=== PATIENT | female | born 1985 | race African-American/Black ===

== ENCOUNTER 2022-08-17 09:56 | Inpatient (IN) ==
[2022-08-17] MEDS ORDERED: CITRIC ACID/SODIUM CITRATE 30 ML UDCUP PO ONE (10:28)
[2022-08-17] MEDS ORDERED: METHYLERGONOVINE 0.2 MG/1 ML AMP IM PRN (10:28)
[2022-08-17] MEDS ORDERED: OXYTOCIN/LR 20 UNIT/1,000 ML BAG IV ONE ×2 (10:28→15:27)
[2022-08-17] MEDS ORDERED: CARBOPROST TROMETHAMINE 250 MCG/ML AMP IM PRN (10:28)
[2022-08-17] MEDS ORDERED: miSOPROStoL 200 MCG TABLET RECTAL PRN (10:28)
[2022-08-17] MEDS ORDERED: ceFAZolin 3,000 MG in SYRINGE 1 EACH IV ONE (10:28)
[2022-08-17] MEDS ORDERED: FAMOTIDINE 20 MG/2 ML VIAL IV ONE (10:28)
[2022-08-17] MEDS ORDERED: TRANEXAMIC ACID 1,000 MG in SODIUM CHLORIDE 0.9% 100 ML IV PRN (10:28)
[2022-08-17] MEDS ORDERED: LACTATED RINGERS 1,000 ML IV SCH ×2 (10:30→15:30)
[2022-08-17 10:50] LABS: Basophils % 0.2 % (0.0-0.8); Eosinophils # 0.1 10*3/uL (0.0-0.87); Eosinophils % 0.7 % (0.00-10.9); Hematocrit 31.8 VOL% (35.7-47.0); Hemoglobin 10.4 GM/DL (12.0-16.0); Immature Granulocytes % 0.5 %; Immature Granulocytes Absolute 0.04 #; Lymphocytes # 1.3 10*3/uL (1.4-4.0); Lymphocytes % 15.6 % (21.3-54.2); Mean Corpuscular HGB Conc 32.7 GM/DL (32-36); Mean Corpuscular Volume 92.7 FL (87-102); Monocytes # 0.5 10*3/uL (0.11-0.8); Monocytes % 5.6 % (1.7-12.7); Neutrophils % 77.4 % (38.7-73.9); Platelet Count 305 T/CUMM (130-400); Red Blood Count 3.43 MC/CUMM (3.8-5.5); Red Cell Distribution Width 14.1 % (9.3-17.3); White Blood Count 8.25 T/CUMM (4-12)
[2022-08-17] MEDS ORDERED: diphenhydrAMINE 50 MG/1 ML VIAL IV PRN ×2 (11:19)
[2022-08-17] MEDS ORDERED: LACTATED RINGERS 1,000 ML IV ONE ×2 (11:19→14:55)
[2022-08-17] MEDS ORDERED: PROMETHAZINE 25 MG/1 ML VIAL IM ONE (11:19)
[2022-08-17] MEDS ORDERED: hydrOXYzine HCL 25 MG/1 ML VIAL IM PRN (11:19)
[2022-08-17 11:29] LABS: Albumin 2.3 G/DL (3.4-5.0); Bilirubin,Total 0.7 MG/DL (0.20-1.00); Calcium 9.1 MG/DL (8.5-10.1); Osmolality,Calculated 273.5 MOS/KG (273-304); Potassium 3.3 MMOL/L (3.5-5.1)
[2022-08-17] MEDS ORDERED: OXYTOCIN 10 UNIT/ML VIAL IM ONE (13:00)
[2022-08-17] MEDS ORDERED: OXYTOCIN/LR 30 UNIT/1,000 ML BAG IV ONE (13:00)
[2022-08-17] MEDS ORDERED: buprenorphine HCL 0.3 MG/ML VIAL ONE (13:47)
[2022-08-17] MEDS ORDERED: PHENYLEPHRINE 1 MG/10 ML SYRINGE IV ONE ×2 (14:02→14:23)
[2022-08-17] MEDS ORDERED: ONDANSETRON 4 MG/2 ML VIAL ONE ×2 (14:05→14:28)
[2022-08-17] MEDS ORDERED: KETOROLAC 30 MG/1 ML VIAL ONE (14:42)
[2022-08-17 14:51] LABS: Bacteria,Urine Occasional /HPF (Few); Bilirubin,Urine Negative (Negative); Blood, Urine Negative (Negative); Glucose,Urine (UA) Negative (Negative); Ketones,Urine 80 mg/dL (Negative); Mucus,Urine Occasional /LPF (Occasional); Nitrite,Urine Negative (Negative); Protein,Urine Negative (Negative); RBC,Urine 1 /HPF (0-4); Squamous Epithelial Cell,Urine Occasional /HPF (0-10); Urine Appearance Clear (Clear); Urine Color Yellow (Yellow); Urine Urobilinogen 0.2 eU/dL (<2.0); Urine pH 6.5 (4.5-8.0)
[2022-08-17 14:55] LABS: Cord Arterial Blood HCO3 21.2 MMOL/L
[2022-08-17 14:57] LABS: Cord Venous Blood HCO3 22.3 MMOL/L; Cord Venous Blood PCO2 49.3 MMHG; Cord Venous Blood PO2 28.1
[2022-08-17] MEDS ORDERED: LIDOCAINE 2% 5 ML VIAL ONE (15:08)
[2022-08-17] MEDS ORDERED: SIMETHICONE CHEW 80 MG TABLET PO PRN (15:27)
[2022-08-17] MEDS ORDERED: ACETAMINOPHEN 325 MG TABLET PO PRN (15:27)
[2022-08-17] MEDS ORDERED: ONDANSETRON 4 MG/2 ML VIAL IV PRN (15:27)
[2022-08-17] MEDS ORDERED: MAGNESIUM HYDROXIDE SUSP 30 ML UDCUP PO PRN (15:27)
[2022-08-17] MEDS ORDERED: RHO(D) IMMUNE GLOBULIN 300 MCG SYRINGE IM ONE (15:27)
[2022-08-17] MEDS ORDERED: CITRIC ACID/SODIUM CITRATE 30 ML UDCUP ONE (17:44)
[2022-08-17] MEDS: ACETAMINOPHEN 500 MG TABLET PO SCH (18:46)
[2022-08-17] MEDS: DOCUSATE SODIUM 100 MG CAPSULE PO SCH (22:34)
[2022-08-17 22:51] LABS: Basophils % 0.2 % (0.0-0.8); Eosinophils % 0.3 % (0.00-10.9); Hemoglobin 9.1 GM/DL (12.0-16.0); Immature Granulocytes % 0.4 %; Immature Granulocytes Absolute 0.04 #; Lymphocytes % 18.2 % (21.3-54.2); Mean Corpuscular HGB Conc 32.5 GM/DL (32-36); Mean Corpuscular Volume 92.1 FL (87-102); Mean Platelet Volume 9.9 FL (9.6-12.0); Monocytes # 0.8 10*3/uL (0.11-0.8); Monocytes % 7.2 % (1.7-12.7); Neutrophils % 73.7 % (38.7-73.9); Platelet Count 289 T/CUMM (130-400); Red Blood Count 3.04 MC/CUMM (3.8-5.5); Red Cell Distribution Width 13.9 % (9.3-17.3)
[2022-08-18] MEDS: ACETAMINOPHEN 500 MG TABLET PO SCH ×4 (01:31→18:32)
[2022-08-18 07:03] LABS: Basophils % 0.3 % (0.0-0.8); Eosinophils # 0.1 10*3/uL (0.0-0.87); Eosinophils % 0.8 % (0.00-10.9); Hematocrit 29.3 VOL% (35.7-47.0); Hemoglobin 9.3 GM/DL (12.0-16.0); Immature Granulocytes % 0.4 %; Immature Granulocytes Absolute 0.04 #; Lymphocytes # 1.6 10*3/uL (1.4-4.0); Lymphocytes % 17.2 % (21.3-54.2); Mean Corpuscular HGB Conc 31.7 GM/DL (32-36); Mean Corpuscular Volume 93.9 FL (87-102); Mean Platelet Volume 9.7 FL (9.6-12.0); Monocytes # 0.8 10*3/uL (0.11-0.8); Monocytes % 8.1 % (1.7-12.7); Neutrophils % 73.2 % (38.7-73.9); Platelet Count 270 T/CUMM (130-400); Red Blood Count 3.12 MC/CUMM (3.8-5.5); Red Cell Distribution Width 14.2 % (9.3-17.3); White Blood Count 9.23 T/CUMM (4-12)
[2022-08-18] MEDS: MULTIVITAMIN (PRENATAL) TABLET PO SCH (08:17)
[2022-08-18] MEDS: DOCUSATE SODIUM 100 MG CAPSULE PO SCH ×2 (08:18→21:27)
[2022-08-18] MEDS: IBUPROFEN 800 MG TABLET PO PRN ×2 (08:20→17:09)
[2022-08-18] MEDS: ENOXAPARIN 40 MG/0.4 ML SYRINGE SUBCUT SCH (08:20)
[2022-08-18] MEDS: METOCLOPRAMIDE 10 MG/2 ML VIAL IV SCH ×2 (08:21→17:32)
[2022-08-19] MEDS: METOCLOPRAMIDE 10 MG/2 ML VIAL IV SCH ×2 (06:26→08:14)
[2022-08-19] MEDS: ACETAMINOPHEN 500 MG TABLET PO SCH (06:27)
[2022-08-19 07:13] VITALS: BP 107/61
[2022-08-19] MEDS: ENOXAPARIN 40 MG/0.4 ML SYRINGE SUBCUT SCH (08:14)
[2022-08-19] MEDS: MULTIVITAMIN (PRENATAL) TABLET PO SCH (08:14)
[2022-08-19] MEDS: DOCUSATE SODIUM 100 MG CAPSULE PO SCH (08:14)
== END 2022-08-19 14:25 | disposition home or self-care (01) | DRG 788 ==
LOC: N.LD 09:56 → N.OB 20:20
PROVIDERS: ADMIT Obstetrics & Gynecology; ATTEND Obstetrics & Gynecology